=== PATIENT | male | born 1970 | race African-American/Black ===

== ENCOUNTER 2016-08-08 06:34 | Emergency (ER) | payer OTHER ==
[~2016-08-08] VITALS: Ht 180.3 cm; Wt 127.0 kg
[~2016-08-08 06:34] MED LIST: AMLO5TAB88; GLIP5TAB73; LISI10TA; METF-516
[2016-08-08] MEDS ORDERED: ONDANSETRON HCL 4MG/2ML VIAL IV STA (07:01)
[2016-08-08] MEDS ORDERED: SODIUM CHLORIDE 0.9% 1,000 ML IV ONE (07:01)
[2016-08-08] MEDS ORDERED: MORPHINE SULFATE 4 MG/ML CPJ (NOT FOR IM USE) IV STA (07:01)
[2016-08-08 07:14] LABS: EOSINOPHILS % 2.2 % (0.0-5.0); RED CELL DISTRIBUTION WIDTH 13.4 % (11.6-14.6)
[2016-08-08 07:16] LABS: BASOPHILS % 0.9 % (0.0-2.0); HEMATOCRIT. 39.6 % (42.0-52.0); HEMOGLOBIN. 13.5 g/dL (14.0-18.0); MEAN CORPUSCULAR HEMOGLOBIN 29.7 pg (28.0-32.0); MEAN CORPUSCULAR VOLUME 87.3 fL (80.0-94.0); MEAN PLATELET VOLUME 7.8 fl (7.4-10.4); MONOCYTES % 9.9 % (2.0-8.0); PLATELET 360 x1000/uL (130-400); RED BLOOD CELL COUNT 4.53 mill/uL (4.7-6.1); WHITE BLOOD COUNT 7.7 x1000/uL (4.5-11.0)
[2016-08-08 07:22] LABS: INR 0.9; PARTIAL THROMBOPLASTIN TIME 24.7 sec (24.0-34.0); PROTHROMBIN TIME 9.9 sec
[2016-08-08 07:30] LABS: ALANINE AMINOTRANSFERASE 31 IU/L (13-61); ALBUMIN 3.7 g/dL (3.4-5.0); ANION GAP 14; CALCIUM 9.1 mg/dL (8.5-10.1); CARBON DIOXIDE 29 mEq/L (21-32); CHLORIDE 97 mEq/L (98-107); CREATINE KINASE 291 IU/L (39-308); CREATINE KINASE MB FRACTION 1.7 ng/mL (0.5-3.6); INDEX HEMOLYSI 2 (1-3); INDEX ICTERIC 1 (1-4); INDEX LIPEMIC 1 (1-3); LIPASE 207 IU/L (73-393); TROPONIN I < 0.02 ng/mL (0.00-0.04); UREA NITROGEN BLOOD 16 mg/dL (7-21); eGFR > 60 mL/min (>60)
[2016-08-08 09:27] VITALS: BP 138/79
== END 2016-08-08 09:30 | disposition home or self-care (01) ==
LOC: ER 06:45
DX: R07.89 Other chest pain (principal); R00.0 Tachycardia, unspecified; E11.9 Type 2 diabetes mellitus without complications; I10 Essential (primary) hypertension; F17.210 Nicotine dependence, cigarettes, uncomplicated; Z79.4 Long term (current) use of insulin; Z79.899 Other long term (current) drug therapy
CPT/HCPCS: 36415; 71010; 71250; 76705; 80053; 82550; 82553; 83690; 84484; 85025; 85610; 85730; 93005; 96360; 99285; J7030; Z7610